=== PATIENT | male | born 1995 | race Two or more races ===

== ENCOUNTER 2020-11-23 16:32 | Inpatient (IN) | payer SELFPAY ==
[~2020-11-23] VITALS: Ht 175.3 cm; Wt 81.6 kg
[2020-11-23] MEDS ORDERED: NALOXONE HCL 0.4 MG/ML VIAL ONE (16:41)
[2020-11-23] MEDS ORDERED: SODIUM CHLORIDE 0.9% 1,000 ML IVB ONE (17:15)
[2020-11-23 19:18] LABS: Basophils # (auto) 0.1 10 ^3/uL (0-0.2); Basophils % (auto) 0.9 % (0.0-2.0); Eosinophils # (auto) 0 10 ^3/uL (0-0.8); Eosinophils % (auto) 0.1 % (0.0-7.0); Neutrophils # (auto) 6.1 10 ^3/uL (1.6-8.6); White Blood Cell 8.6 10^3/uL (4.4-10.8)
[2020-11-23 19:20] LABS: Hematocrit 42.3 % (41.0-53.0); Hemoglobin 15.1 g/dL (13.5-17.5); Lymphocytes # (auto) 1.5 10 ^3/uL (0.4-5.4); Mean Corpuscular Hemoglobin 35.9 pg (28.0-32.0); Mean Corpuscular Hgb Conc. 35.6 g/dL (32.0-36.0); Mean Corpuscular Volume 100.7 fL (80.0-100.0); Monocytes % (auto) 11.3 % (0.0-12.0); Neutrophils % (auto) 70.7 % (37.0-80.0); Red Cell Distribution Width 14.2 % (11.8-14.3)
[2020-11-23 19:32] LABS: Albumin 3.6 g/dL (3.4-5.0); Anion Gap 5 (5-15); Blood Urea Nitrogen 12 mg/dL (7-18); Calcium 8.3 mg/dL (8.5-10.1); Carbon Dioxide 27 mmol/L (21-32); Chloride 115 mmol/L (98-107); Glucose 108 mg/dL (74-106); Magnesium 2.4 mg/dL (1.6-2.6); Potassium 3.9 mmol/L (3.5-5.1); Sodium 147 mmol/L (136-145)
[2020-11-23 19:35] LABS: Alanine Aminotransferase 256 U/L (16-61); Aspartate Aminotransferase 112 U/L (15-37); BUN/Creatinine Ratio 11.3; Blood Alcohol < 3.0 mg/dL (0-5); GFR African American 109 mL/min; GFR Non-African American 90 mL/min
[2020-11-23 19:37] LABS: Alkaline Phosphatase 80 U/L (45-117); Bilirubin, Total 0.9 mg/dL (0.2-1.0); Total Protein 6.9 g/dL (6.4-8.2)
[2020-11-23] MEDS ORDERED: NALOXONE HCL 1MG/ML 2ML SYRINGE ONE (20:03)
[2020-11-23] MEDS ORDERED: NALOXONE HCL 1MG/ML 2ML SYRINGE IV ONE (20:15)
[2020-11-23] MEDS ORDERED: D5W 5% 1,000 ML IV ONE (22:45)
[2020-11-23] MEDS ORDERED: ACETAMINOPHEN 325 MG TAB PO PRN (22:45)
[2020-11-23] MEDS ORDERED: HYDROcodone-ACET 5/325MG TAB PO PRN (22:45)
[2020-11-23] MEDS ORDERED: MORPHINE SULF INJ 2 MG/ML SYRINGE 1ML IV PRN (22:45)
[2020-11-23] MEDS ORDERED: NITROGLYCERIN 0.4 MG SL TAB SL PRN (22:45)
[2020-11-23] MEDS ORDERED: ONDANSETRON HCL 4 MG/2 ML VIAL IV PRN (22:45)
[2020-11-24] MEDS: SODIUM CHLOR 0.9% PF (SALINE LOCK) 10ML VIAL/SYR IV SCH ×2 (05:49→09:41)
[2020-11-24 06:02] LABS: Urine Bacteria NONE SEEN /hpf (None Seen); Urine Blood Negative /uL (Negative); Urine Hyaline Cast FEW /lpf (0 - 2); Urine Mucus FEW (None Seen); Urine Specific Gravity 1.036 (1.001-1.035); Urine WBC 4 /hpf (0 - 3)
[2020-11-24 06:03] LABS: Amphetamine Screen, Urine POSITIVE (NEGATIVE); Barbiturate Scree,Urine NEGATIVE (NEGATIVE); Benzodiazephine Screen, Urine NEGATIVE (NEGATIVE); Cannabinoid Screen, Urine POSITIVE (NEGATIVE); Cocaine Screen, Urine NEGATIVE (NEGATIVE)
[2020-11-24 06:10] LABS: Opiate Scree,Urine POSITIVE (NEGATIVE); Phencyclidine Screen, Urine NEGATIVE (NEGATIVE)
[2020-11-24 07:13] LABS: Basophils # (auto) 0.1 10 ^3/uL (0-0.2); Eosinophils # (auto) 0 10 ^3/uL (0-0.8); Eosinophils % (auto) 0.5 % (0.0-7.0); Monocytes % (auto) 12.7 % (0.0-12.0); Neutrophils # (auto) 4.7 10 ^3/uL (1.6-8.6); Nucleated Red Blood Cells % 0.1 %; Red Cell Distribution Width 14.3 % (11.8-14.3)
[2020-11-24 07:16] LABS: Hematocrit 43.4 % (41.0-53.0); Hemoglobin 15.2 g/dL (13.5-17.5); Lymphocytes # (auto) 1.9 10 ^3/uL (0.4-5.4); Lymphocytes % (auto) 24.5 % (10.0-50.0); Mean Corpuscular Hemoglobin 35.5 pg (28.0-32.0); Mean Corpuscular Volume 101.5 fL (80.0-100.0); Neutrophils % (auto) 61.3 % (37.0-80.0); Red Blood Cells 4.28 10^6/uL (4.5-5.90); White Blood Cell 7.7 10^3/uL (4.4-10.8)
[2020-11-24 07:31] LABS: Albumin 3.4 g/dL (3.4-5.0); Calcium 8.6 mg/dL (8.5-10.1); Potassium 4.3 mmol/L (3.5-5.1)
[2020-11-24 07:35] LABS: Bilirubin, Total 1.2 mg/dL (0.2-1.0); Total Protein 6.8 g/dL (6.4-8.2)
[2020-11-24] MEDS ORDERED: ENOXAPARIN SOD 40 MG/0.4 ML SYRINGE SC SCH (10:00)
[2020-11-24] MEDS ORDERED: MULTIPLE VITAMIN TAB PO SCH (10:00)
[2020-11-24] MEDS ORDERED: FAMOTIDINE (10MG/ML) 2ML VL IV SCH (10:00)
[2020-11-24] MEDS ORDERED: ASCORBIC ACID 500 MG TAB PO SCH (10:00)
[2020-11-24] MEDS ORDERED: ZINC SULFATE 220mg CAP or TAB PO SCH (10:00)
[2020-11-24] MEDS ORDERED: SODIUM CHLORIDE 0.9% 1,000 ML IV SCH (12:30)
[2020-11-24 13:28] VITALS: BP 105/75
[2020-11-24 14:03] LABS: Albumin 3.3 g/dL (3.4-5.0); Calcium 8.4 mg/dL (8.5-10.1); Potassium 4.5 mmol/L (3.5-5.1)
[2020-11-24 14:06] LABS: BUN/Creatinine Ratio 26.8; Total Protein 6.6 g/dL (6.4-8.2)
[2020-11-25 11:56] LABS: Hepatitis B Surface Antibody Negative
[2020-11-25 12:22] LABS: Hepatitis A Total Antibody Negative
[2020-11-25 14:07] LABS: Hepatitis B Core Total AB Negative; Hepatitis B Surface Antigen Negative (Negative)
[2020-11-25 14:36] LABS: Hepatitis C Antibody Positive (Negative)
== END 2020-11-24 14:10 | disposition left against medical advice (07) | DRG 92 ==
LOC: ER 16:32 → TELE 22:51
PROVIDERS: ADMIT Nurse Practitioner Family; ATTEND Nurse Practitioner Family
DX: G92 Toxic encephalopathy (principal); E87.0 Hyperosmolality and hypernatremia; Z59.0 Homelessness; R79.89 Other specified abnormal findings of blood chemistry; Z20.822 Contact with and (suspected) exposure to COVID-19; Z88.8 Allergy status to other drugs, medicaments and biological substances; F19.10 Other psychoactive substance abuse, uncomplicated; Z53.29 Procedure and treatment not carried out because of patient's decision for other reasons
CPT/HCPCS: 36415; 70450; 71045; 80053; 80307; 80320; 81001; 82140; 83735; 84443; 85025; 85049; 86703; 86704; 86706; 86708; 86803; 87340; 87426; 93005; 96361; 96372; 96374; 96375; G0378; J3490